=== PATIENT | female | born 1960 | race Caucasian/White ===

== ENCOUNTER → 2020-05-01 | Outpatient (CLI) | payer BC | LOC: LAB SHORT 18:38 → LAB EV 18:38 | DX: R31.9 Hematuria, unspecified (principal) | CPT/HCPCS: 87086 ==

== ENCOUNTER 2022-05-07 11:28 | Emergency (ER) | payer OTHER ==
[~2022-05-07] VITALS: Ht 152.4 cm; Wt 41.7 kg
== END 2022-05-07 12:53 | disposition home or self-care (01) ==
LOC: ER 11:28
DX: U07.1 COVID-19 (principal); J44.9 Chronic obstructive pulmonary disease, unspecified; Z88.5 Allergy status to narcotic agent
CPT/HCPCS: 99282

== ENCOUNTER 2024-10-24 03:23 | Day surgery (SDC) | payer OTHER ==
[2024-10-24] MEDS ORDERED: Lidocaine HCl 4% Cream 5 GM ONE (12:46)
== END 2024-10-24 23:00 | disposition home or self-care (01) ==
LOC: WOUND 03:23
DX: C41.0 Malignant neoplasm of bones of skull and face (principal); M86.18 Other acute osteomyelitis, other site; J43.9 Emphysema, unspecified; E78.5 Hyperlipidemia, unspecified; F17.200 Nicotine dependence, unspecified, uncomplicated; Z88.0 Allergy status to penicillin; Z88.5 Allergy status to narcotic agent
CPT/HCPCS: 11102; 88305; 88311; A9270; G0463

== ENCOUNTER 2024-10-30 02:24 | Day surgery (SDC) | payer OTHER | END 2024-10-30 23:00 | disposition home or self-care (01) | LOC: WOUND 02:24 | DX: S01.00XD Unspecified open wound of scalp, subsequent encounter (principal); X58.XXXD Exposure to other specified factors, subsequent encounter; L98.496 Non-pressure chronic ulcer of skin of other sites with bone involvement without evidence of necrosis | CPT/HCPCS: G0463 ==

== ENCOUNTER 2024-11-05 00:47 | Day surgery (SDC) | payer OTHER ==
[2024-11-05] MEDS ORDERED: Lidocaine HCl 4% Cream 5 GM ONE (14:03)
== END 2024-11-05 23:00 | disposition home or self-care (01) ==
LOC: WOUND 00:47
DX: S01.00XD Unspecified open wound of scalp, subsequent encounter (principal); J44.9 Chronic obstructive pulmonary disease, unspecified; L98.496 Non-pressure chronic ulcer of skin of other sites with bone involvement without evidence of necrosis; C44.90 Unspecified malignant neoplasm of skin, unspecified; X58.XXXD Exposure to other specified factors, subsequent encounter
CPT/HCPCS: A9270; G0463

== ENCOUNTER 2024-11-19 01:12 | Day surgery (SDC) | payer OTHER | END 2024-11-19 23:00 | disposition home or self-care (01) | LOC: WOUND 01:12 | DX: S01.00XD Unspecified open wound of scalp, subsequent encounter (principal); J44.9 Chronic obstructive pulmonary disease, unspecified; L98.496 Non-pressure chronic ulcer of skin of other sites with bone involvement without evidence of necrosis; C44.90 Unspecified malignant neoplasm of skin, unspecified; X58.XXXD Exposure to other specified factors, subsequent encounter | CPT/HCPCS: G0463 ==

== ENCOUNTER 2024-11-29 02:19 | Day surgery (SDC) | payer OTHER | END 2024-11-29 23:00 | LOC: WOUND 02:19 | DX: C44.42 Squamous cell carcinoma of skin of scalp and neck (principal); L98.496 Non-pressure chronic ulcer of skin of other sites with bone involvement without evidence of necrosis; S01.00XA Unspecified open wound of scalp, initial encounter; X58.XXXA Exposure to other specified factors, initial encounter; J44.9 Chronic obstructive pulmonary disease, unspecified | CPT/HCPCS: G0463 ==

== ENCOUNTER → 2024-12-04 | Day surgery (SDC) | payer OTHER ==
[~2024-12-04] MED LIST: Lidocaine HCl 4% Cream 5 GM ONE
== END ==
LOC: WOUND
DX: C44.42 Squamous cell carcinoma of skin of scalp and neck (principal); L98.494 Non-pressure chronic ulcer of skin of other sites with necrosis of bone; S01.00XA Unspecified open wound of scalp, initial encounter; L98.496 Non-pressure chronic ulcer of skin of other sites with bone involvement without evidence of necrosis; J44.9 Chronic obstructive pulmonary disease, unspecified
CPT/HCPCS: A9270; G0463

== ENCOUNTER 2024-12-11 03:56 | Day surgery (SDC) | payer OTHER | END 2024-12-11 23:11 | disposition home or self-care (01) | LOC: WOUND 03:56 | DX: C44.42 Squamous cell carcinoma of skin of scalp and neck (principal); J44.9 Chronic obstructive pulmonary disease, unspecified; F17.200 Nicotine dependence, unspecified, uncomplicated | CPT/HCPCS: G0463 ==

== ENCOUNTER 2024-12-18 02:49 | Day surgery (SDC) | payer OTHER | END 2024-12-18 23:03 | disposition home or self-care (01) | LOC: WOUND 02:49 | DX: C44.42 Squamous cell carcinoma of skin of scalp and neck (principal); L98.496 Non-pressure chronic ulcer of skin of other sites with bone involvement without evidence of necrosis; J44.9 Chronic obstructive pulmonary disease, unspecified | CPT/HCPCS: G0463 ==

== ENCOUNTER 2024-12-25 02:30 | Day surgery (SDC) | payer OTHER | END 2024-12-25 23:00 | disposition home or self-care (01) | LOC: WOUND 02:30 | DX: S01.00XD Unspecified open wound of scalp, subsequent encounter (principal); L98.496 Non-pressure chronic ulcer of skin of other sites with bone involvement without evidence of necrosis; C44.90 Unspecified malignant neoplasm of skin, unspecified; X58.XXXD Exposure to other specified factors, subsequent encounter | CPT/HCPCS: G0463 ==

== ENCOUNTER 2025-01-07 01:45 | Day surgery (SDC) | payer OTHER | END 2025-01-07 23:00 | disposition home or self-care (01) | LOC: WOUND 01:45 | DX: S01.00XD Unspecified open wound of scalp, subsequent encounter (principal); C44.90 Unspecified malignant neoplasm of skin, unspecified; L98.496 Non-pressure chronic ulcer of skin of other sites with bone involvement without evidence of necrosis; J44.9 Chronic obstructive pulmonary disease, unspecified; X58.XXXD Exposure to other specified factors, subsequent encounter | CPT/HCPCS: G0463 ==

== ENCOUNTER 2025-01-21 09:43 | Day surgery (SDC) | payer OTHER ==
[2025-01-21] MEDS ORDERED: Lidocaine HCl 4% Cream 5 GM ONE (14:40)
== END 2025-01-21 23:00 | disposition home or self-care (01) ==
LOC: WOUND 09:43
DX: C44.42 Squamous cell carcinoma of skin of scalp and neck (principal); L98.496 Non-pressure chronic ulcer of skin of other sites with bone involvement without evidence of necrosis; J44.9 Chronic obstructive pulmonary disease, unspecified
CPT/HCPCS: A9270; G0463

== ENCOUNTER 2025-01-26 21:04 | Inpatient (IN) | payer OTHER ==
[~2025-01-26] VITALS: Ht 152.4 cm; Wt 39.7 kg
[2025-01-26 22:15] LABS: BASOPHILS ABSOLUTE AUTO 0.06 K/mm3 (0.00-0.23); BASOPHILS PERCENT AUTO 0 % (0-2); EOSINOPHILS ABSOLUTE AUTO 0.03 K/mm3 (0.00-0.68); EOSINOPHILS PERCENT AUTO 0 % (0-6); Hematocrit 35.2 % (33.0-51.0); IMMATURE GRAN ABSOLUTE AUTO 0.05 K/mm3 (0.00-0.10); IMMATURE GRAN PERCENT AUTO 0 % (0-1); LYMPHOCYTES ABSOLUTE AUTO 1.02 K/mm3 (0.84-5.20); LYMPHOCYTES PERCENT AUTO 6 % (21-46); MONOCYTES ABSOLUTE AUTO 1.85 K/mm3 (0.16-1.47); MONOCYTES PERCENT AUTO 11 % (4-13); Mean Corpuscular HGB 30.4 pg (26.0-34.0); Mean Corpuscular HGB Conc 34.1 g/dL (31.5-36.5); Mean Corpuscular Volume 89 fL (80-100); Mean Platelet Volume 10.3 fL (9.1-12.4); NEUTROPHILS ABSOLUTE AUTO 14.35 K/mm3 (1.96-9.15); NEUTROPHILS PERCENT AUTO 83 % (41-73); Platelet Count 290 K/mm3 (150-400); RDW Coefficient Variation 13.9 % (11.7-14.2); RDW Standard Deviation 45.6 fL (35.1-46.3); Red Blood Cell Count 3.95 M/mm3 (3.80-5.20); White Blood Cell Count 17.36 K/mm3 (4.00-11.30)
[2025-01-26 22:30] LABS: Albumin, Blood 2.9 g/dL (3.4-5.0); Albumin/Globulin Ratio 0.7 (0.8-1.8); Bilirubin, Total 0.6 mg/dL (0.1-1.0); Bun/Creatinine Ratio 24.8 (12.0-20.0); Calcium, Blood 8.9 mg/dL (8.5-10.1); Creatinine, Blood 0.73 mg/dL (0.40-1.00); Globulin, Blood 4.3 g/dL (2.2-4.0); Potassium, Blood 3.1 mmol/L (3.5-5.5); Total Protein, Blood 7.2 g/dL (6.4-8.2)
[2025-01-26 23:18] LABS: Magnesium, Blood 2.1 mg/dL (1.6-2.4); Phosphorus, Blood 3.6 mg/dL (2.5-4.9)
[2025-01-27] MEDS ORDERED: NS 1,000 ML IV SCH ×2 (01:55→03:55)
[2025-01-27] MEDS ORDERED: Potassium Chl 20MEQ/Water100ML 100 ML IV ONE (01:55)
[2025-01-27] MEDS ORDERED: CefTRIAXone Sodium 1,000 MG in NS 50 ML IV ONE (03:00)
[2025-01-27] MEDS ORDERED: Azithromycin 500 MG in NS 250 ML IV ONE (03:00)
[2025-01-27] MEDS ORDERED: Ondansetron HCl 2 MG / ML 2ML Vial IV PRN (03:55)
[2025-01-27] MEDS ORDERED: Ipratropium/Albuterol SulF 2.5-0.5MG/3 ML Amp INH PRN (03:55)
[2025-01-27] MEDS ORDERED: Acetaminophen 325 MG TABLET PO PRN (03:55)
[2025-01-27 05:59] VITALS: BP 114/59
[2025-01-27 06:30] LABS: BASOPHILS ABSOLUTE AUTO 0.04 K/mm3 (0.00-0.23); BASOPHILS PERCENT AUTO 0 % (0-2); EOSINOPHILS ABSOLUTE AUTO 0.01 K/mm3 (0.00-0.68); EOSINOPHILS PERCENT AUTO 0 % (0-6); Hematocrit 34.8 % (33.0-51.0); Hemoglobin 11.7 g/dL (11.5-16.0); IMMATURE GRAN ABSOLUTE AUTO 0.05 K/mm3 (0.00-0.10); IMMATURE GRAN PERCENT AUTO 0 % (0-1); LYMPHOCYTES ABSOLUTE AUTO 1.52 K/mm3 (0.84-5.20); LYMPHOCYTES PERCENT AUTO 11 % (21-46); MONOCYTES ABSOLUTE AUTO 1.57 K/mm3 (0.16-1.47); MONOCYTES PERCENT AUTO 11 % (4-13); Mean Corpuscular HGB 30.2 pg (26.0-34.0); Mean Corpuscular HGB Conc 33.6 g/dL (31.5-36.5); Mean Corpuscular Volume 90 fL (80-100); Mean Platelet Volume 10.1 fL (9.1-12.4); NEUTROPHILS ABSOLUTE AUTO 11.03 K/mm3 (1.96-9.15); NEUTROPHILS PERCENT AUTO 78 % (41-73); Platelet Count 316 K/mm3 (150-400); RDW Coefficient Variation 14.1 % (11.7-14.2); RDW Standard Deviation 46.2 fL (35.1-46.3); Red Blood Cell Count 3.88 M/mm3 (3.80-5.20); White Blood Cell Count 14.22 K/mm3 (4.00-11.30)
[2025-01-27 06:41] LABS: CORONAVIRUS COVID-19 AG Negative (NEGATIVE); INFLUENZA A AG Negative (NEGATIVE); INFLUENZA B AG Negative (NEGATIVE)
[2025-01-27 07:01] LABS: Albumin, Blood 2.8 g/dL (3.4-5.0); Albumin/Globulin Ratio 0.7 (0.8-1.8); Bilirubin, Total 0.6 mg/dL (0.1-1.0); Bun/Creatinine Ratio 17.1 (12.0-20.0); Calcium, Blood 8.8 mg/dL (8.5-10.1); Creatinine, Blood 0.7 mg/dL (0.40-1.00); Globulin, Blood 4.3 g/dL (2.2-4.0); Potassium, Blood 3.9 mmol/L (3.5-5.5); Total Protein, Blood 7.1 g/dL (6.4-8.2)
[2025-01-27 07:10] VITALS: BP 122/57
[2025-01-27] MEDS ORDERED: Enoxaparin 40 MG/0.4 ML SYR SC SCH (09:00)
[2025-01-27] MEDS ORDERED: MethylPREDNISolone Sod Succ 125 MG Vial IV SCH (09:00)
--- NOTE | 2025-01-27 09:31 | NUR ---
ASSUMING CARE OF PT, MANAGER INTERFACE INFORMED THIS RN THAT NO "INTERVENTIONS WERE PLACED". UPON ASSESSMENT, IT APPEARS THAT PT DID NOT HAVE INITIAL ASSESSMENT PERFORMED WHEN ARRIVED ON FLOOR. WILL ADD NOW.
[2025-01-27] MEDS ORDERED: ANORO ELLIPTA1 EACH INH (10:28)
[2025-01-27] MEDS ORDERED: Simvastatin10 MG PO (10:29)
[2025-01-27 11:46] VITALS: BP 104/56
[2025-01-27 15:51] VITALS: BP 115/61
[2025-01-27] MEDS ORDERED: Nicotine 21 MG PATCH TOP SCH (16:00)
--- NOTE | 2025-01-27 17:48 | NUR ---
SHIFT SUMMARY PT AOX4, COOPERATIVE, ABLE TO MAKE NEEDS KNOWN. PT IS IND IN ROOM, ON 2LO2 CURRENTLY. DID ADDRESS WOUND CHANGE ON PT HEAD. ON ISO FOR COVID RULEOUT CURRENLTY. TOLERATING PO AND IV MEDICATION. BED IN LWOEST POSITION, CALL LIGHT WITHIN REACH.
[2025-01-27 19:36] VITALS: BP 113/57
[2025-01-28 00:23] VITALS: BP 127/72
[2025-01-28 04:29] VITALS: BP 133/74
[2025-01-28 05:33] LABS: BASOPHILS ABSOLUTE AUTO 0.02 K/mm3 (0.00-0.23); BASOPHILS PERCENT AUTO 0 % (0-2); EOSINOPHILS ABSOLUTE AUTO 0.01 K/mm3 (0.00-0.68); EOSINOPHILS PERCENT AUTO 0 % (0-6); Hematocrit 36.6 % (33.0-51.0); Hemoglobin 11.8 g/dL (11.5-16.0); IMMATURE GRAN ABSOLUTE AUTO 0.02 K/mm3 (0.00-0.10); IMMATURE GRAN PERCENT AUTO 0 % (0-1); LYMPHOCYTES ABSOLUTE AUTO 0.72 K/mm3 (0.84-5.20); LYMPHOCYTES PERCENT AUTO 9 % (21-46); MONOCYTES ABSOLUTE AUTO 0.11 K/mm3 (0.16-1.47); MONOCYTES PERCENT AUTO 1 % (4-13); Mean Corpuscular HGB 30.1 pg (26.0-34.0); Mean Corpuscular HGB Conc 32.2 g/dL (31.5-36.5); Mean Corpuscular Volume 93 fL (80-100); Mean Platelet Volume 11.7 fL (9.1-12.4); NEUTROPHILS ABSOLUTE AUTO 6.82 K/mm3 (1.96-9.15); NEUTROPHILS PERCENT AUTO 89 % (41-73); Platelet Count 340 K/mm3 (150-400); RDW Coefficient Variation 14.2 % (11.7-14.2); RDW Standard Deviation 48.2 fL (35.1-46.3); Red Blood Cell Count 3.92 M/mm3 (3.80-5.20)
[2025-01-28 05:58] LABS: Bun/Creatinine Ratio 9.3 (12.0-20.0); Calcium, Blood 9.1 mg/dL (8.5-10.1); Creatinine, Blood 0.54 mg/dL (0.40-1.00); Potassium, Blood 3.8 mmol/L (3.5-5.5)
[2025-01-28] MEDS ORDERED: CefTRIAXone Sodium 1,000 MG in NS 100 ML IV SCH (06:00)
[2025-01-28] MEDS ORDERED: Azithromycin 500 MG in NS 250 ML IV SCH (06:00)
[2025-01-28] MEDS ORDERED: NS 250 ML IV PRN (06:00)
--- NOTE | 2025-01-28 06:32 | NUR ---
SHIFT SUMMARY ADMITTED FOR PNEUMONIA. PT IS ALERT AND ORIENTED TIMES 4. PT HAS COPD.SAND ON 2L O2 NASAL CANNULA. ROOM AIR BASELINE AT HOME. PT HAS HOME MEDICATION NOW IN NOV.. PT IS ON TELE. PT APPEARED TO SLEEP ON AND OFF THROUGH THE NIGHT WITHOUT ISSUE. AM O2 LEVELS WERE IN 90 S 94 OFF O2. BED IS IN LOW POSITION, CALL LIGHT WITHIN REACH, AND RAILS ARE TIMES 2.
[2025-01-28 07:58] VITALS: BP 130/65
[2025-01-28 11:31] VITALS: BP 133/69
[2025-01-28] MEDS ORDERED: ACET325 PO (15:25)
[2025-01-28] MEDS ORDERED: Prednisone10 MG PO (15:26)
[2025-01-28] MEDS ORDERED: LEVO750 PO (15:26)
[2025-01-28] MEDS ORDERED: VISBIOME 112.51 EACH PO (15:26)
--- NOTE | 2025-01-28 16:32 | NUR ---
DISCHARGE: PT D/C @1550 VIA WHEELCHAIR WITH . RX MEDICATIONS FAXED TO [facility]. HOME 02 COMPLETED PRIOR TO D/C BUT PT REFUSING HOME OXYGEN AT THIS TIME DESPITE NEEDING 2L c EXERTION. PT REQUESTED NEW NEBULIZER/ [facility] TO DELIVER MACHINE TO PT HOME. IV REMOVED BY RN STUDENT PRIOR TO D/C W/O COMPLICATIONS. TELE SENT BACK. NO QUESTIONS AT TIME OF D/C.
[2025-01-28] MEDS ORDERED: ANORO ELLIPTA INH SCH (21:00)
== END 2025-01-28 16:10 | disposition home or self-care (01) | DRG 193 ==
LOC: ER 21:04 → MEDS 01-27 04:05 → ERHOLD 01-27 04:05 → MEDS 01-27 05:50
PROVIDERS: Emergency Medicine; Internal Medicine; ADMIT Internal Medicine
DX: J18.9 Pneumonia, unspecified organism (principal); J96.01 Acute respiratory failure with hypoxia; J44.0 Chronic obstructive pulmonary disease with (acute) lower respiratory infection; R64 Cachexia; Z68.1 Body mass index [BMI] 19.9 or less, adult; J44.1 Chronic obstructive pulmonary disease with (acute) exacerbation; E78.5 Hyperlipidemia, unspecified; E87.6 Hypokalemia; D72.829 Elevated white blood cell count, unspecified; J43.9 Emphysema, unspecified; E86.0 Dehydration; Z88.0 Allergy status to penicillin; Z88.5 Allergy status to narcotic agent; Z85.828 Personal history of other malignant neoplasm of skin
CPT/HCPCS: 36415; 71046; 71260; 80048; 80053; 83605; 83735; 83880; 84100; 84484; 85025; 85379; 87428-QW; 93005; 93010; 96365-59; 99285-25; A9270; J0456; J0696; J1650; J2919; J3480; J7030; J7050; Q9967

== ENCOUNTER 2025-02-04 04:15 | Day surgery (SDC) | payer OTHER ==
[~2025-02-04 04:15] MED LIST changes: +ACET325 PO; +ANORO ELLIPTA1 EACH INH; +LEVO750 PO; -Lidocaine HCl 4% Cream 5 GM ONE; +Prednisone10 MG PO; +Simvastatin10 MG PO; +VISBIOME 112.51 EACH PO
== END 2025-02-04 23:31 | disposition home or self-care (01) ==
LOC: WOUND 04:15
DX: C44.42 Squamous cell carcinoma of skin of scalp and neck (principal); L98.496 Non-pressure chronic ulcer of skin of other sites with bone involvement without evidence of necrosis; S01.00XA Unspecified open wound of scalp, initial encounter; J44.9 Chronic obstructive pulmonary disease, unspecified
CPT/HCPCS: G0463

== ENCOUNTER 2025-04-01 05:05 | Day surgery (SDC) | payer OTHER | END 2025-04-01 23:00 | disposition home or self-care (01) | LOC: WOUND 05:05 | DX: S01.00XA Unspecified open wound of scalp, initial encounter (principal); L98.496 Non-pressure chronic ulcer of skin of other sites with bone involvement without evidence of necrosis; C44.42 Squamous cell carcinoma of skin of scalp and neck | CPT/HCPCS: A6196; G0463 ==

== ENCOUNTER 2025-04-15 01:23 | Day surgery (SDC) | payer OTHER | END 2025-04-15 23:00 | disposition home or self-care (01) | LOC: WOUND 01:23 | DX: S01.00XA Unspecified open wound of scalp, initial encounter (principal); C44.42 Squamous cell carcinoma of skin of scalp and neck | CPT/HCPCS: G0463 ==

== ENCOUNTER 2025-04-29 01:01 | Day surgery (SDC) | payer OTHER | END 2025-04-29 23:00 | disposition home or self-care (01) | LOC: WOUND 01:01 | DX: C44.40 Unspecified malignant neoplasm of skin of scalp and neck (principal); L98.496 Non-pressure chronic ulcer of skin of other sites with bone involvement without evidence of necrosis; J44.9 Chronic obstructive pulmonary disease, unspecified; F17.200 Nicotine dependence, unspecified, uncomplicated | CPT/HCPCS: A6196; G0463 ==

== ENCOUNTER 2025-06-03 01:28 | Day surgery (SDC) | payer OTHER ==
[2025-06-03] MEDS ORDERED: Lidocaine HCl 4% Cream 5 GM ONE (13:42)
== END 2025-06-03 23:00 | disposition home or self-care (01) ==
LOC: WOUND 01:28
DX: C44.42 Squamous cell carcinoma of skin of scalp and neck (principal); J44.9 Chronic obstructive pulmonary disease, unspecified; F17.200 Nicotine dependence, unspecified, uncomplicated
CPT/HCPCS: A9270; G0463

== ENCOUNTER 2025-06-17 01:21 | Day surgery (SDC) | payer OTHER | END 2025-06-17 22:00 | disposition home or self-care (01) | LOC: WOUND 01:21 | DX: C44.42 Squamous cell carcinoma of skin of scalp and neck (principal); J44.9 Chronic obstructive pulmonary disease, unspecified; F17.200 Nicotine dependence, unspecified, uncomplicated | CPT/HCPCS: A6196; G0463 ==

== ENCOUNTER 2025-07-29 00:45 | Day surgery (SDC) | payer OTHER ==
[2025-07-29] MEDS ORDERED: Lidocaine HCl 4% Cream 5 GM ONE (13:45)
== END 2025-07-29 23:00 | disposition home or self-care (01) ==
LOC: WOUND 00:45
DX: C44.42 Squamous cell carcinoma of skin of scalp and neck (principal); J44.9 Chronic obstructive pulmonary disease, unspecified
CPT/HCPCS: A9270; G0463

== ENCOUNTER 2025-08-12 01:01 | Day surgery (SDC) | payer OTHER | END 2025-08-12 22:00 | disposition home or self-care (01) | LOC: WOUND 01:01 | DX: C44.42 Squamous cell carcinoma of skin of scalp and neck (principal) ==

== ENCOUNTER 2025-08-26 07:26 | Day surgery (SDC) | payer OTHER | END 2025-08-26 23:40 | disposition home or self-care (01) | LOC: WOUND 07:26 | DX: C44.42 Squamous cell carcinoma of skin of scalp and neck (principal); J44.9 Chronic obstructive pulmonary disease, unspecified; F17.200 Nicotine dependence, unspecified, uncomplicated | CPT/HCPCS: G0463 ==

== ENCOUNTER 2025-09-09 00:23 | Day surgery (SDC) | payer OTHER | END 2025-09-09 23:00 | disposition home or self-care (01) | LOC: WOUND 00:23 | DX: C44.42 Squamous cell carcinoma of skin of scalp and neck (principal); J44.9 Chronic obstructive pulmonary disease, unspecified | CPT/HCPCS: G0463 ==